=== PATIENT | female | born 1995 | race Caucasian/White ===

== ENCOUNTER 2022-01-18 02:14 | Observation (INO) | payer OTHER ==
[2022-01-18] MEDS ORDERED: Morphine 4 MG/ML VIAL ONE (03:53)
[2022-01-18] MEDS ORDERED: Piperacillin/Tazobactam 4.5 GM VIAL ONE (03:54)
[2022-01-18 08:55] VITALS: BMI 26.2
[2022-01-18] MEDS ORDERED: Bupivacaine 0.25% HCL 30 ML VIAL ONE (09:04)
[2022-01-18] MEDS ORDERED: SUGAMMADEX SODIUM 200 MG/2 ML VIAL ONE (09:15)
[2022-01-18] MEDS ORDERED: Propofol 1,000 MG/100 ML VIAL IV ONE (09:15)
[2022-01-18] MEDS ORDERED: Ondansetron PF 4 MG/2 ML Vial ONE (09:18)
[2022-01-18] MEDS ORDERED: Lidocaine 1% PF 5 ML VIAL ONE (09:18)
[2022-01-18] MEDS ORDERED: Fentanyl 100 MCG/2 ML VIAL ONE ×2 (09:18→10:44)
[2022-01-18] MEDS ORDERED: Rocuronium Bromide 10 MG/ML (10ML VIAL) ONE (09:18)
[2022-01-18] MEDS ORDERED: Dextrose 50% Abboject 50 ML SYRINGE SLOW IVP PRN (09:23)
[2022-01-18] MEDS ORDERED: Ondansetron PF 4 MG/2 ML Vial IVP PRN (09:23)
[2022-01-18] MEDS ORDERED: Promethazine HCl 25 MG/ML VIAL IM PRN (09:23)
[2022-01-18] MEDS ORDERED: Dextrose 5% in Water 1,000 ML IV PRN (09:23)
[2022-01-18] MEDS ORDERED: Mag-Al 1200 mg/1200 mg/30 ML UDCUP PO PRN (09:23)
[2022-01-18] MEDS ORDERED: Morphine 2 MG/ML VIAL SLOW IVP PRN (09:23)
[2022-01-18] MEDS ORDERED: hydrALAZINE 20 MG/ML VIAL SLOW IVP PRN (09:23)
[2022-01-18] MEDS ORDERED: Calcium Carbonate 500 MG ChewTAB PO PRN (09:23)
[2022-01-18] MEDS ORDERED: PHENYLEPHRINE-NS 100 MCG/ML 10 ML SYRINGE ONE (09:41)
[2022-01-18] MEDS ORDERED: Glycopyrrolate 0.2 MG/ML 5 ML SYRINGE ONE (10:09)
[2022-01-18] MEDS ORDERED: EPINEPHrine 1 MG/ML AMP ONE (10:09)
[2022-01-18] MEDS: D5 1/2 NS w/20 mEq KCL 1,000 ML IV SCH (13:00)
[2022-01-18] MEDS: Ketorolac Tromethamine 30 MG/ML VIAL IVP SCH ×2 (13:20→18:17)
[2022-01-18] MEDS ORDERED: FLU VACC QS2022-23(6MOS UP)/PF 60 MCG/0.5 ML SYRINGE IM ONE (14:15)
[2022-01-18] MEDS: HYDROcodone/Acetaminophen 5/325 mg Tablet PO PRN (21:08)
[2022-01-18] MEDS: Famotidine/PF 20 mg/2ml Vial SLOW IVP SCH (21:19)
[2022-01-19] MEDS ORDERED: Levothyroxine Sodium 25 MCG TAB PO SCH (06:00)
[2022-01-19] MEDS ORDERED: Levothyroxine Sodium 112 MCG TAB PO SCH (06:00)
[2022-01-19] MEDS: HYDROcodone/Acetaminophen 5/325 mg Tablet PO PRN (06:10)
[2022-01-19] MEDS: Ketorolac Tromethamine 30 MG/ML VIAL IVP SCH ×2 (07:58→07:59)
[2022-01-19] MEDS: D5 1/2 NS w/20 mEq KCL 1,000 ML IV SCH (07:58)
[2022-01-19] MEDS: Famotidine/PF 20 mg/2ml Vial SLOW IVP SCH (10:31)
[2022-01-19 11:30] VITALS: BP 107/71; TEMP 98.1
== END 2022-01-19 11:30 | disposition home or self-care (01) ==
LOC: CSHERS 02:14 → CSHPED 08:52
PROVIDERS: ADMIT Surgery; ATTEND Surgery
PROC: 0FT44ZZ Resection of Gallbladder, Percutaneous Endoscopic Approach (ICD-10-PCS; principal; 2022-01-18)
DX: O99.612 Diseases of the digestive system complicating pregnancy, second trimester (principal); K80.10 Calculus of gallbladder with chronic cholecystitis without obstruction; Z3A.17 17 weeks gestation of pregnancy; E06.3 Autoimmune thyroiditis; E89.0 Postprocedural hypothyroidism; Z28.310 Unvaccinated for COVID-19; Z79.899 Other long term (current) drug therapy
CPT/HCPCS: 76705; 88304; 94760; 96375; C1889; G0378; J0171; J1885; J2270; J2405; J2543; J2704; J3010; J3480; S0020; S0028

== ENCOUNTER 2022-02-17 12:36 | Outpatient (CLI) | payer OTHER | END 2022-02-17 12:37 | disposition home or self-care (01) | LOC: CSHULT 12:36 | PROVIDERS: ATTEND Family Medicine | DX: Z34.82 Encounter for supervision of other normal pregnancy, second trimester (principal); Z3A.21 21 weeks gestation of pregnancy | CPT/HCPCS: 76805 ==

== ENCOUNTER 2022-06-20 05:30 | Inpatient (IN) | payer OTHER ==
[2022-06-21] MEDS ORDERED: hydrALAZINE 20 MG/ML VIAL SLOW IVP PRN ×2 (02:06→15:40)
[2022-06-21] MEDS ORDERED: Lidocaine 1% (PF) 30 ML VIAL SC PRN (02:06)
[2022-06-21] MEDS ORDERED: Methylergonovine 0.2 MG/ML VIAL IM PRN (02:06)
[2022-06-21] MEDS ORDERED: HYDROcodone/Acetaminophen 5/325 mg Tablet PO PRN ×2 (02:06→15:40)
[2022-06-21] MEDS ORDERED: Promethazine HCl 25 MG/ML VIAL IM PRN ×3 (02:06→15:40)
[2022-06-21] MEDS ORDERED: Diphenoxylate HCl/Atropine Tablet PO PRN (02:06)
[2022-06-21] MEDS ORDERED: Carboprost 250 MCG/ML AMP IM PRN (02:06)
[2022-06-21] MEDS ORDERED: Ondansetron PF 4 MG/2 ML Vial IVP PRN ×3 (02:06→15:40)
[2022-06-21] MEDS ORDERED: fentaNYL 50 mcg/mL 1 mL Vial SLOW IVP PRN (02:06)
[2022-06-21] MEDS ORDERED: Acetaminophen 500 MG TAB PO PRN (02:06)
[2022-06-21] MEDS ORDERED: NS w/ Oxytocin 30 units 500 ML IV SCH ×3 (02:06)
[2022-06-21] MEDS ORDERED: Ibuprofen 800 MG TAB PO PRN (02:06)
[2022-06-21 02:33] VITALS: BMI 32.1
[2022-06-21 02:58] LABS: Hemoglobin 11.2 g/dL (12.0-15.5); Mean Corpuscular HGB CONC 34.1 g/dL (32.0-36.0); Mean Corpuscular Hemoglobin 31.1 pg (27.0-33.0); Mean Corpuscular Volume 91.1 fl (81.6-98.3); Mean Platelet Volume 9.8 fl (7.4-10.4); Platelet Count 158 10x3/uL (150-450); RBC Distribution Width 12.6 % (11.5-14.5)
[2022-06-21 03:21] LABS: Syphilis Antibody Nonreactive (Nonreactive); Syphilis Antibody Index 0.08 S/CO (<1.00 Non-Reactive)
[2022-06-21 03:22] LABS: HBSAg Index 0.24 S/CO (0-0.99); Hep B Surf Ag - L&D Non-Reactive S/CO (NonReactive)
[2022-06-21] MEDS: Misoprostol 100 MCG TAB VAG SCH ×2 (03:26→08:38)
[2022-06-21] MEDS: Lactated Ringer's 1,000 ML IV SCH ×2 (07:58→10:34)
[2022-06-21] MEDS ORDERED: Fentanyl 2 mcg/Bup 0.1% Cadd 100 ML ONE (09:53)
[2022-06-21] MEDS ORDERED: diphenhydrAMINE 50 MG/ML VIAL IVP PRN (10:39)
[2022-06-21] MEDS ORDERED: Moisturizing Cream (Eucerin) 113 GM JAR TOP PRN (10:39)
[2022-06-21] MEDS ORDERED: ePHEDrine Sulfate 50 MG/10 ML VIAL SLOW IVP PRN (10:39)
[2022-06-21] MEDS ORDERED: Naloxone HCl 0.4 mg/ml Vial IVP PRN ×2 (10:39)
[2022-06-21] MEDS ORDERED: Lactated Ringer's 500 ML IV PRN (10:39)
[2022-06-21] MEDS ORDERED: Acetaminophen 325 MG TAB PO PRN (10:39)
[2022-06-21] MEDS ORDERED: Communication Order-Pharmacy FS SCH (10:45)
[2022-06-21] MEDS ORDERED: Fentanyl 2 mcg/Bupivacaine 0.1% Cassette 100 ML EPIDURAL SCH (10:45)
[2022-06-21] MEDS ORDERED: Dexmedetomidine 200 MCG/2 ML VIAL ONE (11:36)
[2022-06-21] MEDS ORDERED: Bupivacaine 0.25% HCL 30 ML VIAL ONE (14:00)
[2022-06-21] MEDS ORDERED: Bisacodyl 10 MG SUPP PR PRN (15:40)
[2022-06-21] MEDS ORDERED: Boostrix 0.5 ML (Tdap) VIAL (>/=7 yrs of age) IM ONE (15:40)
[2022-06-21] MEDS ORDERED: Milk Of Magnesia 30 ML UDCUP PO PRN (15:40)
[2022-06-21] MEDS ORDERED: Lanolin Ointment 7 GM TUBE TOP PRN (15:40)
[2022-06-21] MEDS ORDERED: diphenhydrAMINE 25 MG CAP PO PRN (15:40)
[2022-06-21] MEDS: Ferrous Sulfate 325 MG TAB PO SCH (16:45)
[2022-06-21] MEDS: Docusate 100 MG CAP PO SCH (21:15)
[2022-06-22] MEDS: Ibuprofen 800 MG TAB PO SCH ×3 (01:12→16:11)
[2022-06-22] MEDS ORDERED: Prenatal Vitamin 1 TAB PO SCH (09:00)
[2022-06-22] MEDS: Docusate 100 MG CAP PO SCH (09:02)
[2022-06-22] MEDS: Ferrous Sulfate 325 MG TAB PO SCH ×2 (09:27→17:45)
[2022-06-22 17:43] VITALS: BP 101/65; TEMP 98.6
== END 2022-06-22 17:53 | disposition home or self-care (01) | DRG 807 ==
LOC: CSHLD 06-21 01:40 → CSHPP 06-21 15:55
PROVIDERS: ADMIT Family Medicine; ATTEND Family Medicine
PROC: 10E0XZZ Delivery of Products of Conception, External Approach (ICD-10-PCS; principal; 2022-06-21)
PROC: 10907ZC Drainage of Amniotic Fluid, Therapeutic from Products of Conception, Via Natural or Artificial Opening (ICD-10-PCS; 2022-06-21)
PROC: 3E0P7VZ Introduction of Hormone into Female Reproductive, Via Natural or Artificial Opening (ICD-10-PCS; 2022-06-21)
DX: O80 Encounter for full-term uncomplicated delivery (principal); Z37.0 Single live birth; Z3A.39 39 weeks gestation of pregnancy
CPT/HCPCS: 36415; 85027; 86780; 86850; 86900; 86901; 87340; J2590; J7120; S0020

== ENCOUNTER 2023-11-12 20:48 | Emergency (ER) | payer OTHER, SELFPAY ==
[~2023-11-12 20:48] MED LIST: Iopamidol 300 61% 100 ML VIAL FS ONE
[2023-11-12 21:32] LABS: Bilirubin Neg (Negative); Blood, Urine 10 (Negative); Clarity Clear (Clear); Glucose, Urine (Dipstick) Normal (Negative); Ketone, Urine 15 mg/dL (Negative); Leukocyte Negative (Negative); Nitrite Negative (Negative); Protein, Urine (Dipstick) Negative (Neg-Trace); Urobilinogen Normal mg/dL (Less than 2)
[2023-11-12 21:38] LABS: Pregnancy Test - Urine (BHCG) Negative (Negative); Pregu Control Background? CLEAR/WHITE (CLR/WHITE); Pregu Control Bar Appear? YES (CONTROL BAR)
[2023-11-12 21:42] LABS: #Basophils 0.04 10x3/uL (0.0-0.2); #Eosinphils 0.03 10x3/uL (0.0-0.5); #Monocytes 0.28 10x3/uL (0.0-1.1); #Neutrophils 4.58 10x3/uL (1.5-8.4); %Basophils 0.7 % (0.0-2.0); %Eosinophils 0.5 % (0.0-6.0); %Lymphocytes 17.9 % (18.0-47.0); %Monocytes 4.6 % (0.0-10.0); Hematocrit 40.5 % (34.9-44.5); Hemoglobin 13.7 g/dL (12.0-15.5); Mean Corpuscular HGB CONC 33.8 g/dL (32.0-36.0); Mean Corpuscular Hemoglobin 31.4 pg (27.0-33.0); Mean Corpuscular Volume 92.7 fL (81.6-98.3); Platelet Count 218 10x3/uL (150-450); RBC Distribution Width 11.1 % (11.5-14.5); Red Blood Cell (RBC) Count 4.37 10x6/uL (3.90-5.03)
[2023-11-12 21:48] LABS: ALT (SGPT) 17 U/L (8-55); AST (SGOT) 15 U/L (5-34); Albumin 4.7 g/dL (3.5-5.0); Alkaline Phosphatase 45 U/L (40-110); Anion Gap 15 mmol/L (10-20); BUN (Urea Nitrogen) 8 mg/dL (7.0-18.7); Bilirubin, Total 1.1 mg/dL (0.2-1.2); Calc. Creatinine Clearance 0 mL/min (70-130); Calcium 9.5 mg/dL (7.8-10.44); Carbon Dioxide 22 mmol/L (22-29); Chloride 106 mmol/L (98-107); Estimated GFR 104; Globulin 2.9 g/dL (2.4-3.5); Glucose 87 mg/dL (70-105); Lipase 24 U/L (8-78); Potassium 3.5 mmol/L (3.5-5.1); Protein, Total 7.6 g/dL (6.0-8.3); Sodium 139 mmol/L (136-145)
[2023-11-12 22:49] LABS: Bacteria/HPF None Seen HPF (None Seen); CAUTI Indications for Culture Pelvic or flank pain; RBC/HPF None Seen HPF (0-3); Squamous Epithelial 0-3 HPF (0-3); Urine Culture Reflex No No; WBC/HPF None Seen HPF (0-3)
== END 2023-11-13 00:12 | disposition home or self-care (01) ==
LOC: CSHERS 20:48
DX: R10.31 Right lower quadrant pain (principal); R10.33 Periumbilical pain; E03.9 Hypothyroidism, unspecified; Z79.890 Hormone replacement therapy
CPT/HCPCS: 36415; 74177; 80053; 81001; 81025; 83690; 85025; 96360; 96361; Q9967